=== PATIENT | female | born 1950 | race Caucasian/White ===

== ENCOUNTER 2016-09-26 12:22 | Emergency (ER) | payer OTHER ==
[2016-09-26 12:51] VITALS: BP 107/61; PULSE 76; RESP 20; O2SAT 96
--- NOTE | 2016-09-26 14:22 | UCPHY ---
[id number]/04/17 12:36 HPI/ROS: CHIEF COMPLAINT: Cough, rib pain HISTORY OF PRESENT ILLNESS: 66-year-old female presents to the emergency department with her daughter complaining of cough x1 month. She states 3 or 4 days ago she coughs so hard that she developed severe pain in the left rib. She is concerned that she may have fractured a rib. She has a history of severe osteoporosis. She denies feeling short of breath. She does have pain when she breathes deeper when she moves around. She states that the cough is productive green sputum. No fevers or chills. No headache. No sore throat or dysphagia. REVIEW OF SYSTEMS: Constitutional: No fever, no chills. Eyes: No double or blurry vision. ENT: No sore throat. Respiratory: Cough as above. No shortness of breath. Cardiac: No chest pain. Gastrointestinal: No abdominal pain, vomiting or diarrhea. Genitourinary: No dysuria. Musculoskeletal: No neck or back pain. Skin: No rashes. Neurological: No headache. (Ivania Shaikh) Past Medical/Surgical History: Osteoporosis, fractured hip, "kidney problems", liver problems, depression ( Ivania Shaikh) Social History: Lives in [place] with her daughter (Ivania Shaikh) Physical Exam: General Appearance: Alert, no distress. 96% on room air. Eyes: Pupils equal and round. Extraocular motions are all intact. ENT: Mouth: Mucous membranes moist. Respiratory: No wheezing, rhonchi, or rales, lungs are clear to auscultation. Reproducible pain with palpation in the left mid axillary line overlying the 4th through 6th rib area. No palpable crepitus or other bony abnormality. Cardiovascular: Regular rate and rhythm. Gastrointestinal: Abdomen is soft and nontender, no masses, no rebound or guarding, bowel sounds normal. Neurological: Alert and oriented x 3, cranial nerves II through XII grossly intact Skin: Warm and dry, no rashes. Musculoskeletal: Nontender to palpate along the cervical, thoracic or lumbar spine. Neck is supple. Extremities: Full range of motion and no peripheral edema. Psychiatric: Patient is oriented X 3, there is no agitation. (Ivania Shaikh) Constitutional: Initial Vital Signs Temperature (C) 36.4 C 09/26/16 12:46 Heart Rate 76 01/04/17 12:46 Respiratory Rate 20 09/26/16 12:46 Blood Pressure 107/61 09/26/16 12:46 O2 Sat (%) 96 09/26/16 12:46 O2 Delivery Mode Room Air Allergies/Adverse Reactions: iodine Allergy (Verified 09/26/16 12:45) Home Medications: Medication Instructions Recorded Amoxicillin/Clavulanate Pot 875 mg PO BID #20 tab 09/26/16 [Augmentin 875 mg tab] FLUoxetine 09/26/16 Hydrocodone/APAP 5/325 [[place] 1 each PO Q4-6PRN PRN #15 tab 09/26/16 5/325 (*)] Rizatriptan 09/26/16 Topiramate 09/26/16 Wellbutrin 100mg (*) 09/26/16 Medical Decision Making - Diagnostics Imaging: Chest x-ray reveals no acute pulmonary disease. No evidence of obvious rib fracture or pneumothorax. This is reviewed by myself and the PAC system. Radiology interpretation to follow. (Ivania Shaikh) ED Course/Re-evaluation: A 66-year-old female presents with left rib pain after coughing for several weeks. Chest x-ray reveals no evidence of pneumonia. No evidence of obvious rib fracture or pneumothorax. The daughter is concerned that she is having a lot of pain. She has a history of kidney and liver problems. She has taken plain oxycodone in the past, however her daughter states that this made her crazy. She is not allowed to take anything [id number] because of her impaired liver and kidney problems. I did offer Ultram although this is predominantly excreted by the liver. I offered hydrocodone with a less amount of acetaminophen and the daughter and patient request hydrocodone/acetaminophen 5/325. I encouraged her to have close follow-up with her primary care provider for repeat laboratory studies. I encouraged her to return to the emergency department if she developed pain in her chest, difficulty breathing, change in symptoms, or if she felt worse in any way. The patient and daughter at bedside verbalized his understanding and agreed. Patient has had a productive cough over the last 1 month. She feels that is likely from postnasal drainage. Clinically I would agree. Her lungs are clear to auscultation in her chest x-rays otherwise unremarkable. She will be treated with Augmentin and given prescription for [place]. (Ivania Shaikh) Urgent Care PA supervision Physician documentation: The patient was evaluated and managed by the physician fleet administrative assistant. My co- signature indicates that I have reviewed this chart and I agree with the findings and plan of care as documented. I am the secondary supervising physician. (Samm Chavez) Differential Diagnosis: Including but not limited to rib fracture, pneumothorax, pneumonia, sinusitis, bronchitis (Ivania Shaikh) Departure - Departure Disposition: Home, Routine, Self-Care Clinical Impression: Rib pain on left side, Cough, Sinusitis Condition: Good Instructions: Acute Cough (ED), Sinusitis (ED), Chest Wall Pain (ED) Additional Instructions: Augmentin 875 mg twice daily for 10 days. Hydrocodone for severe pain as directed. Caution as this contains 325 mg of acetaminophen per tablet. Deep breaths. Return if you feel short of breath, increasing pain, or if you feel worse in any way. Referrals: [place],. [Primary Care Provider] - 2-3 days, call for appt. Prescriptions: Amoxicillin/Clavulanate Pot [Augmentin 875 mg tab] 875 mg PO BID #20 tab Hydrocodone/APAP 5/325 [[place] 5/325 (*)] 1 each PO Q4-6PRN PRN #15 tab PRN Reason: Pain, Severe - PQRS PQRS Measurement: 134: Depression screening and followup, PRIME MD-PHQ2 (12 years and older) Over the last 2 weeks, how often have you been bothered by any of the following problems? 1. Feeling down, depressed, or hopeless? 2. Little interest or pleasure in doing things? Patient answered no to both 1 and 2 130: Documentation of medications. Reviewed all patient medications, doses, route and frequency. 226: Do you smoke? No. 47: 65 and older: Advanced care planning. Patient has advanced directive. 51: 18 years old and older with diagnosis of COPD, spirometry performance. Patient has no history of COPD 52: 18 years old and older with COPD and symptoms of COPD or FEV1<60% predicted prescribed a B Agonist. Not applicable (Ivania Shaikh)
[2016-09-26 14:24] VITALS: TEMP 97.5
--- NOTE | 2016-09-26 14:30 | DX ---
PA lateral chest x-ray 1351 hours. History: Cough for one month with left-sided chest pain. Findings: Heart size and pulmonary vasculature appear to be normal. The lungs are hyper expanded. The re is no consolidation, effusion, or pneumothorax. Osseous structures appear to be intact. Impression: 1. No active cardiopulmonary disease seen. 2. Hyperexpanded lungs. This can be seen with COPD/emphysema versus increased inspiratory effort. Cli nical correlation recommended.
== END 2016-09-26 14:35 | disposition home or self-care (01) ==
LOC: CED 12:22
DX: J32.9 Chronic sinusitis, unspecified (principal); R07.89 Other chest pain; M81.0 Age-related osteoporosis without current pathological fracture
CPT/HCPCS: 71020; G0463; 99214-PO